=== PATIENT | male | born 1975 | race Caucasian/White ===

== ENCOUNTER 2022-06-04 14:20 | Emergency (ER) | payer OTHER ==
[~2022-06-04] VITALS: Ht 177.8 cm; Wt 82.6 kg
[2022-06-04 14:20] VITALS: BP_SYST 117
[2022-06-04 15:08] LABS: BASOPHILS % (AUTO) 0.7 % (0.0-2.0); EOSINOPHILS # (AUTO) 0.1 K/uL (0.0-0.4); EOSINOPHILS % (AUTO) 1.6 % (0.0-4.0); HEMATOCRIT 41.9 % (36-54); HEMOGLOBIN 13.9 g/dL (14.0-18.0); LYMPHOCYTES # (AUTO) 1.1 K/uL (1.0-5.5); LYMPHOCYTES % (AUTO) 14.9 % (20.5-51.5); MEAN CORPUSCULAR HEMOGLOBIN 26 pg (27-31); MEAN CORPUSCULAR HGB CONC 33 % (32-36); MEAN CORPUSCULAR VOLUME 78 fL (79.0-98.0); MONOCYTES # (AUTO) 0.5 K/uL (0.0-1.0); MONOCYTES % (AUTO) 6.4 % (1.7-9.3); NEUTROPHILS # (AUTO) 5.6 K/uL (1.8-7.7); NEUTROPHILS % (AUTO) 76.4 % (40.0-70.0); PLATELET COUNT (AUTO) 565 K/uL (130-430); RED BLOOD CELL COUNT(AUTO) 5.35 MIL/uL (4.2-6.2); RED CELL DISTRIBUTION WIDTH 17.1 % (9.0-15.0); WHITE BLOOD COUNT (AUTO) 7.4 K/uL (4.8-10.8)
[2022-06-04 15:16] LABS: ANION GAP 7 (5-15); CALCIUM 9.2 mg/dL (8.4-11.0); CHLORIDE 100 mmol/L (98-107); CREATININE 1.16 mg/dL (0.55-1.30); GLUCOSE 93 mg/dL (70-99); UREA NITROGEN, BLOOD 15 mg/dL (8-21)
[2022-06-04 15:18] LABS: GFR AFRICAN AMERICAN 88 mL/min (>90)
[2022-06-04 15:23] LABS: ALANINE AMINOTRANSFERASE 63 U/L (12-78); ALBUMIN 3.9 g/dL (3.4-4.8); ASPARTATE AMINOTRANSFERASE 21 U/L (10-37); TOTAL BILIRUBIN 0.4 mg/dL (0.0-1.0)
[2022-06-04] MEDS ORDERED: NITROGLYCERIN 1 INCH (GM) OINT. TP ONE (16:15)
[2022-06-04 23:35] VITALS: BP_SYST 123
== END 2022-06-04 23:36 | disposition short-term general hospital (02) ==
LOC: SED 14:20
DX: I35.0 Nonrheumatic aortic (valve) stenosis (principal); R20.2 Paresthesia of skin; R07.89 Other chest pain; K21.9 Gastro-esophageal reflux disease without esophagitis; R00.0 Tachycardia, unspecified; Z79.899 Other long term (current) drug therapy; Z20.822 Contact with and (suspected) exposure to COVID-19
CPT/HCPCS: 36415; 70450-TC; 71045; 76376; 80053; 83880; 84484; 85025; 93005; 99285